=== PATIENT | male | born 1965 | race Hispanic/Latino ===

== ENCOUNTER → 2017-01-13 | Outpatient (CLI) | payer BC | END | disposition home or self-care (01) | LOC: LAB.O 15:21 | PROVIDERS: ATTEND Urology | DX: N40.2 Nodular prostate without lower urinary tract symptoms (principal) ==

== ENCOUNTER → 2020-09-16 | Outpatient (CLI) | payer OTHER ==
--- NOTE | 2020-09-20 15:35 | MRI ---
PROVIDED CLINICAL HISTORY/REASON FOR EXAM: ELEVATED PROSTATE SPECIFIC ANTIGEN TECHNIQUE: Multisequence, multiplanar MRI images of the pelvis with and without contrast. COMPARISON: None FINDINGS: The prostate gland measures 4.4 x 4.5 x 2.8 cm. This results in a prostate volume of 29 cc. PSA not provided at the time of dictation. Evaluation limited by magnetic strength. Peripheral Zone: Sequela of prostatitis. Lesion # one: Location: Left posteromedial base peripheral zone on series 1401 image 14. Size: 0.9 x 0.7 cm. Signal: Rounded area of diminished T2 and ADC signal Enhancement: Preferential enhancement. Extraprostatic extension: None. PI-RADS: 4 Transition Zone: BPH. No index lesion. Capsule: Intact. No extra-prostatic extension. Neurovascular Bundles: Unremarkable. Seminal Vesicles: Normal. Lymph Nodes: None. Bones: No focal marrow signal abnormality. Other: No significant findings. IMPRESSION: PI-RADS 4 left posteromedial gland base peripheral zone lesion measuring 0.9 cm. No extra prostatic extension. Electronically signed by: Raymundo Johns MD 09/20/2020 3:33 PM CDT
== END ==
LOC: MRI 09:14
PROVIDERS: ATTEND Urology
DX: C61 Malignant neoplasm of prostate (principal); R97.20 Elevated prostate specific antigen [PSA]

== ENCOUNTER → 2020-11-12 | Outpatient (CLI) | payer OTHER ==
--- NOTE | 2020-11-12 14:13 | CT ---
EXAM DESCRIPTION: Abdomen/Pelvis w/Contrast CLINICAL HISTORY: 55 years Male, malignant neoplasm TECHNIQUE: This exam was performed according to our departmental dose-optimization program, which includes automated exposure control, adjustment of the mA and/or kV according to patient size and/or use of iterative reconstruction technique. COMPARISON: March 27, 2016 FINDINGS: Visualized lung bases are grossly unremarkable. The liver is unremarkable. No suspicious hepatic lesion. No biliary dilatation. The gallbladder is unremarkable. The portal vein is patent. The spleen, pancreas and adrenal glands are unremarkable. Symmetric renal parenchymal enhancement. No hydronephrosis. No urolithiasis. Unremarkable bladder. Prostatic calcifications. Masslike thickening of the high rectum, straddling the anterior peritoneal reflection. This mass spans a distance of 3.9 cm. There is adjacent tumoral deposits in the presacral space measuring up to 1.5 cm. Enlarged presacral adenopathy. Reference presacral lymph node measures 1.0 cm series 2 image 71. There is invasion of the anterior peritoneal reflection by the mass best seen series 2 image 75. Enteric contrast was administered. No evidence of bowel obstruction. Normal appendix. No retroperitoneal adenopathy. No drainable fluid collection. No free air. Normal caliber abdominal aorta. Bilateral L5 pars defects. No acute or suspicious osseous abnormality. IMPRESSION: T4 node positive high rectal cancer with invasion of the anterior peritoneal reflection. Electronically signed by: Raymundo Johns MD 11/12/2020 2:11 PM [employer]
== END ==
LOC: CT 08:00
DX: Z01.812 Encounter for preprocedural laboratory examination (principal); C18.9 Malignant neoplasm of colon, unspecified